=== PATIENT | female | born 2005 | race Caucasian/White ===

== ENCOUNTER 2024-11-28 10:46 | Outpatient (CLI) | payer OTHER, SELFPAY ==
[2024-11-28 11:15] LABS: Hematocrit 39.3 % (37.0-47.0); Hemoglobin 12.9 g/dL (12.0-15.0); Immature Granulocyte Percent A 0.3 % (0-0.5); Lymphocytes Absolute Auto 2.13 K/mm3 (0.9-3.2); Mean Corpuscular HGB Conc 32.8 g/dl (32-36); Mean Corpuscular Hemoglobin 28.6 pg (26-34); Mean Corpuscular Volume 87.1 fl (80-100); Nucleated Red Blood Cells Absolute Auto 0.000 K/mm3 (0.0-0.012); Nucleated Red Blood Cells Perc 0.0 % (0.0-0.2); Platelet Count Result 266 k/mm3 (150-375); Red Blood Count 4.51 M/mm3 (4.2-5.4); White Blood Count 6.5 K/mm3 (4.5-10.0)
[2024-11-28 11:31] LABS: Hemoglobin A1C 7.2 % (<5.7)
[2024-11-28 11:55] LABS: Free T4 Free Thyroxine 1.43 ng/dL (0.78-2.19)
[2024-11-28 12:09] LABS: Thyroid Stimulating Hormone 2.580 uIU/mL (0.465-4.680)
== END 2024-11-28 10:47 | disposition home or self-care (01) ==
LOC: ANHLAB 10:52
PROVIDERS: PCP Nurse Practitioner Pediatrics; Visit Provider Nurse Practitioner Pediatrics
DX: R51.9 Headache, unspecified (principal); R53.83 Other fatigue
CPT/HCPCS: 36415; 83036; 84439; 84443; 85025